=== PATIENT | male | born 1955 | race Caucasian/White ===

== ENCOUNTER 2020-07-20 04:42 | Observation (INO) ==
[2020-07-20] MEDS ORDERED: Ondansetron 4 MG/2 ML VIAL IVP PRN (08:08)
[2020-07-20] MEDS ORDERED: Acetaminophen 325 MG TABLET PO PRN (08:08)
[2020-07-20] MEDS ORDERED: Perflutren Lipid Microsphere 1.3 ML in 0.9 % Sodium Chloride 8.7 ML IVP PRN (09:30)
[2020-07-20] MEDS ORDERED: Nicotine 2 MG GUM BC PRN (09:39)
[2020-07-20 10:12] LABS: Magnesium 2.2 mg/dL (1.6-2.6)
[2020-07-20] MEDS: Aspirin 81 MG TAB.CHEW PO SCH (13:37)
[2020-07-20] MEDS: Metoprolol XL (24 HR) Succ 25 MG TAB.ER.24H PO SCH (13:37)
[2020-07-20] MEDS: Gabapentin 300 MG CAPSULE PO SCH ×3 (13:37→21:27)
[2020-07-20] MEDS: Nicotine 14 MG PATCH.TD24 TD SCH (13:38)
[2020-07-20] MEDS: *HR* Rivaroxaban 10 MG TABLET PO SCH (17:17)
[2020-07-21 01:18] LABS: Hematocrit 39.3 % (37.5-50.1); Hemoglobin 12.5 g/dL (12.9-16.9); Mean Corpuscular HGB Conc 31.8 g/dL (31.6-35.5); Mean Corpuscular Hemoglobin 31.3 pg (28.0-33.3); Mean Corpuscular Volume 98.3 fL (83.0-100.0); Platelet Count 157 K/mcL (140-400); Red Cell Distribution Width 14.4 % (11.5-14.5); White Blood Count 10.3 K/mcL (4.3-11.1)
[2020-07-21 01:23] LABS: BUN/Creatinine Ratio 21 (6-26); Blood Urea Nitrogen 20 mg/dL (8-23); Calcium 8.9 mg/dL (8.6-10.3); Carbon Dioxide 21 mEq/L (23-29); Chloride 111 mEq/L (98-107); Glucose 108 mg/dL (70-105); Magnesium 2.2 mg/dL (1.6-2.6); Osmolality,Calculated 295 (280-300); Phosphorous 3.8 mg/dL (2.7-4.5); Potassium 3.6 mEq/L (3.5-5.1); Sodium 141 mEq/L (136-145); eGFR For African Americans > 60 (> 60); eGFR For Non-African Americans > 60 (> 60)
[2020-07-21 01:52] LABS: Estimated Average Glucose 111 mg/dl
[2020-07-21] MEDS: Aspirin 81 MG TAB.CHEW PO SCH (10:45)
[2020-07-21] MEDS: Metoprolol XL (24 HR) Succ 25 MG TAB.ER.24H PO SCH (10:45)
[2020-07-21] MEDS: Gabapentin 300 MG CAPSULE PO SCH ×3 (10:46→20:46)
[2020-07-21] MEDS: levETIRAcetam 250 MG TABLET PO SCH ×2 (10:46→20:45)
[2020-07-21] MEDS: Nicotine 14 MG PATCH.TD24 TD SCH (10:46)
[2020-07-21] MEDS: *HR* Rivaroxaban 10 MG TABLET PO SCH (16:39)
[2020-07-22 07:01] VITALS: BP 117/62
[2020-07-22] MEDS: Metoprolol XL (24 HR) Succ 25 MG TAB.ER.24H PO SCH (08:45)
[2020-07-22] MEDS: Aspirin 81 MG TAB.CHEW PO SCH (08:45)
[2020-07-22] MEDS: Gabapentin 300 MG CAPSULE PO SCH (08:46)
[2020-07-22] MEDS: Nicotine 14 MG PATCH.TD24 TD SCH (08:46)
[2020-07-22] MEDS: levETIRAcetam 250 MG TABLET PO SCH (08:46)
== END 2020-07-22 13:43 | disposition home or self-care (01) ==
LOC: 2NNU → SUATTDRO 06:06 → 3ANU 17:47
PROVIDERS: ADMIT Internal Medicine; ATTEND Internal Medicine